=== PATIENT | male | born 1990 | race African-American/Black ===

== ENCOUNTER 2018-05-19 15:38 | Emergency (ER) | payer OTHER ==
[2018-05-19 15:51] VITALS: BP 135/85
[2018-05-19] MEDS ORDERED: ACETAMINOPHEN 325 MG TABLET PO ONE (15:58)
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
[2018-05-19] MEDS ORDERED: ACETAMINOPHEN 325 MG TABLET ONE (16:16)
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
== END 2018-05-19 16:26 | disposition home or self-care (01) ==
LOC: ER 15:38
DX: S46.812A Strain of other muscles, fascia and tendons at shoulder and upper arm level, left arm, initial encounter (principal); R07.81 Pleurodynia; M25.512 Pain in left shoulder; V87.7XXA Person injured in collision between other specified motor vehicles (traffic), initial encounter; F17.200 Nicotine dependence, unspecified, uncomplicated
CPT/HCPCS: 99283